=== PATIENT | male | born 1970 | race Caucasian/White ===

== ENCOUNTER 2024-06-26 11:54 | Emergency (ER) | payer SELFPAY ==
[~2024-06-26] VITALS: Ht 162.6 cm; Wt 63.0 kg
[2024-06-26 12:23] VITALS: BP 170/99; PULSE 116; RESP 16; TEMP 99
[2024-06-26] MEDS ORDERED: IBUP-1842 PO (13:04)
[2024-06-26 13:56] VITALS: BP 158/88; PULSE 95; RESP 16; TEMP 98.6; O2SAT 99
== END 2024-06-26 13:56 | disposition home or self-care (01) ==
LOC: MED 11:54
DX: S00.81XA Abrasion of other part of head, initial encounter (principal); E11.9 Type 2 diabetes mellitus without complications; R03.0 Elevated blood-pressure reading, without diagnosis of hypertension; Z79.899 Other long term (current) drug therapy; V49.49XA Driver injured in collision with other motor vehicles in traffic accident, initial encounter; Y93.89 Activity, other specified; Y92.89 Other specified places as the place of occurrence of the external cause; Y99.8 Other external cause status
CPT/HCPCS: 90471; 90715; 99283